=== PATIENT | female | born 1990 | race Caucasian/White ===

== ENCOUNTER 2018-07-02 20:12 | Emergency (ER) | payer SELFPAY ==
[~2018-07-02] VITALS: Ht 172.7 cm; Wt 81.8 kg
[~2018-07-02 20:12] MED LIST: AMOXICILLIN 50500 MG PO; BIRTH CONTROL; NO HOME MEDICATIONS
[2018-07-02 20:15] VITALS: BP 148/64; PULSE 102; TEMP 97.8
== END 2018-07-02 22:30 | disposition home or self-care (01) ==
LOC: COL.ER 20:12
DX: J06.9 Acute upper respiratory infection, unspecified (principal); J45.909 Unspecified asthma, uncomplicated; F17.210 Nicotine dependence, cigarettes, uncomplicated